=== PATIENT | male | born 1990 | race Caucasian/White ===

== ENCOUNTER 2016-05-12 13:51 | Inpatient (IN) ==
[2016-05-12] MEDS ORDERED: NS 1,000 ML IV ONE (14:30)
[2016-05-12] MEDS ORDERED: SODIUM CHLORIDE 0.9% INJ ONE (14:31)
[2016-05-12] MEDS ORDERED: REGLAN IV ONE (14:31)
[2016-05-12] MEDS ORDERED: PHENERGAN IV ONE (14:31)
[2016-05-12 14:39] LABS: MANUAL DIFF NEEDED? NO; URINE CULTURE NEEDED? NO; URINE MICRO REVIEW NEEDED? NO; URINE SOURCE CATH
[2016-05-12 14:43] LABS: BILIRUBIN URINE NEGATIVE (NEGATIVE); BLOOD URINE NEGATIVE (NEGATIVE); COLOR STRAW; GLUCOSE URINE >1000 mg/dL (NEGATIVE); LEUKOCYTES URINE NEGATIVE (NEGATIVE); NITRITE URINE NEGATIVE (NEGATIVE); PROTEIN URINE NEGATIVE (NEGATIVE); SP GRAVITY URINE 1.027; TURBIDITY URINE CLEAR (CLEAR); UR EPITHELIAL CELLS <10 /HPF (<10); URINE BACTERIA NEGATIVE /HPF; URINE RBC <10 /HPF (<10); URINE WBC <10 /HPF (<10); UROBILINOGEN URINE NORMAL (NORMAL)
[2016-05-12 14:45] LABS: BASO% 0.3 % (0.0-0.8); EOS# 0.07 X1000 (0.0-0.7); EOS% 0.8 % (0.0-10.0); HEMATOCRIT 47.5 % (42.0-52.0); HEMOGLOBIN 15.3 g/dL (14.0-18.0); LYMPH# 1.76 X1000 (1.2-3.4); LYMPH% 19.7 % (20.5-51.1); MCH 31.8 PG (27-31); MCHC 32.2 g/dL (33-37); MCV 98.8 FL (81-99); MONO# 0.58 X1000 (0.11-0.59); MONO% 6.5 % (1.7-9.3); MPV 9.5 FL (7.4-10.4); NEUT% 72.7 % (42.2-75.2); PLT 376 X1000 (130-400); RBC 4.81 XMIL (4.7-6.1)
[2016-05-12 15:05] LABS: ALLEN TEST NO; BE -3.9 mmoll (-3.0-3.0); BLOOD TYPE ARTERIAL; DRAW SITE R BRACHIAL; METHB 1.3 % (0.0-1.5); O2(CT) 19.5 mL/dL (15.0-23.0); PCO2(98.6) 40 mmHg (35-45); PO2(98.6) 100 mmHg (60-100); SAMPLE BLOOD; SAO2 100.1 % (95.0-100.0); THB 14.4 g/dL (11.5-17.4); pH(98.6) 7.34 (7.35-7.45)
[2016-05-12 15:07] LABS: MODALITY ROOM AIR
[2016-05-12 15:24] LABS: AGAP 14; ALBUMIN 3.9 g/dL (3.5-5.0); ALKALINE PHOSPHATASE 151 U/L (32-122); BUN 23 mg/dL (8-22); CALCIUM 9.1 mg/dL (8.8-10.2); CHLORIDE 84 mmol/L (98-107); COSMO 295; GOT 27 U/L (10-34); GPT 37 U/L (10-44); POTASSIUM 5.1 mmol/L (3.5-5.1); SODIUM 123 mmol/L (136-145); TCO2 25 mmol/L (25-35); TOTAL BILIRUBIN 1.09 mg/dL (0.20-1.00); TOTAL PROTEIN 7.6 g/dL (6.3-8.3)
[2016-05-12] MEDS ORDERED: HUMULIN R 100 UNIT in NS 100 ML IV SCH (15:30)
[2016-05-12] MEDS ORDERED: POTASSIUM CHLORIDE 20 MEQ in NS 100 ML IV PRN (17:39)
[2016-05-12] MEDS ORDERED: ZOFRAN PO PRN (17:39)
[2016-05-12] MEDS ORDERED: ZOFRAN IV PRN (17:39)
[2016-05-12] MEDS ORDERED: POTASSIUM CHLORIDE 40 MEQ in NS 250 ML IV PRN (17:39)
[2016-05-12] MEDS ORDERED: D50W SYRINGE IV PRN (17:39)
[2016-05-12] MEDS ORDERED: HUMULIN R IV ONE (17:39)
[2016-05-12] MEDS ORDERED: MAGNESIUM SULFATE 2 GM/S.W.I. 2 GM/50 ML IVPB IV PRN (17:39)
[2016-05-12] MEDS ORDERED: SODIUM CHLORIDE 0.9% INJ SCH (18:00)
[2016-05-12] MEDS ORDERED: PROTONIX IV SCH (18:00)
[2016-05-12] MEDS ORDERED: NICODERM PATCH TD PRN (18:00)
[2016-05-12 18:21] LABS: UR AMPHETAMINES QUAL NONE DETECTED (NONE DETECT); UR BARBITUATES QUAL NONE DETECTED (NONE DETECT); UR BENZODIAZEPIN QUAL NONE DETECTED (NONE DETECT); UR CANNABINOIDS QUAL NONE DETECTED (NONE DETECT); UR COCAINE QUAL NONE DETECTED (NONE DETECT); UR METHADONE QUAL NONE DETECTED (NONE DETECT); UR OPIATES QUAL NONE DETECTED (NONE DETECT); UR OXYCODONE QUAL NONE DETECTED (NONE DETECT); UR PCP QUAL NONE DETECTED (NONE DETECT)
--- NOTE | 2016-05-12 18:40 | HISTORY AND PHYSICAL ---
CHIEF COMPLAINT: Nausea, vomiting and weakness. HISTORY OF PRESENT ILLNESS: Mr. Cotto is a 26-year-old, male with a history of type 1 diabetes with medical noncompliance who has not taken his insulin in around a month per his report. Over the past 2 or 3 days he has had worsening nausea and vomiting without abdominal pain and overall lethargy and weakness. He denies any fever, chills, cough or congestion. No hematemesis and no dysuria. He came to the ER today for evaluation. His blood sugar was noted to be above 900 but he was not acidotic and no evidence of DKA. He denies any sick contacts. No chest pain or shortness of breath. No lower extremity edema. No orthopnea. As such, he is going to be admitted to the CICU for HH NKAS with an insulin drip. PAST MEDICAL HISTORY: 1. Type 1 diabetes. 2. Medical noncompliance. 3. Nicotine dependence. 4. Anxiety. SURGICAL HISTORY: Ear surgery and tonsillectomy. SOCIAL HISTORY: The patient reports 6-8 cigarettes a day. He denies alcohol or drug use. He is single and has 3 children. FAMILY HISTORY: Father from unknown causes. Mother alive with no medical problems. REVIEW OF SYSTEMS: Fourteen-point review of systems obtained and found to be negative with the exception of the HPI. ALLERGIES: Amoxicillin and penicillins in general. HOME MEDICATIONS: Klonopin and insulin exact dose is unknown. PHYSICAL EXAMINATION: VITAL SIGNS: Blood pressure is 131/80, heart rate 69, respiratory rate 20, O2 saturation 94% on room air. Temperature is 97.4 degrees. GENERAL: This is a well-developed, well-nourished, male, lying in hospital bed. No acute distress. NEUROLOGIC: The patient is slightly lethargic but he follows commands without focal deficits. He is also slightly confused. He said that it is 2016. HEENT: Head atraumatic and normocephalic. His pupils are equal, round, and reactive to light. Oral mucosa is dry. Trachea is midline. No JVD. CHEST: Clear to auscultation bilaterally. CV: Regular rate and rhythm. S1, S2 is noted. GI: Epigastric tenderness to palpation. Belly is soft nondistended, nontender, bowel sounds positive. EXTREMITIES: Without edema, clubbing or cyanosis. Pulses are palpable bilaterally. DIAGNOSTIC DATA: WBC 8.95, hemoglobin 15.3, hematocrit 47.5, platelet count 376,000. ABG on room air pH 7.34, CO2 40, PO2 100, lactate 1.4. Sodium 123 corrected for glucose is 136, potassium 5.1, chloride 84, CO2 25, anion gap 14, BUN 23, creatinine 0.8. Glucose 915. Calcium 9.1, bilirubin 1.09. AST 27, ALT 37, alkaline phosphatase 151. Urine is negative for acute process. ASSESSMENT AND PLAN: 1. HH NKAS: the patient is not acidotic and has very minimal ketones in the urine. We will place him on an insulin drip with aggressive hydration and electrolyte monitoring. Once his sugar has come down we will switch him to subcutaneous insulin. We will also check a chest x-ray. 2. Nausea, vomiting: Likely secondary to his hyperglycemic hyperosmotic state. We will check an abdominal ultrasound given his mildly elevated LFTs and allow clear liquids. 3. Anxiety. We will continue his Klonopin once the dosages have been verified. 4. Type 1 diabetes: Patient is noncompliant. We will continue diabetic education daily and encourage compliance on a daily basis. 5. Nicotine dependence: Patient has been highly advised to quit smoking. We will write a nicotine patch and continue cessation education. 6. DVT prophylaxis with Lovenox and we will add Protonix given his nausea vomiting. Further recommendations to follow. Dictated by BERT Monroe for Donald Funk MD cc: BERT Monroe MD
[2016-05-12] MEDS: D5 NS 1,000 ML IV SCH ×2 (19:00→20:57)
[2016-05-12] MEDS: HUMULIN R 100 UNIT in NS 99 ML IV SCH ×2 (19:05→20:31)
[2016-05-12 19:17] LABS: HEMOGLOBIN A1C 7.6 % (4.8-6.0)
--- NOTE | 2016-05-12 20:26 | Diag Imaging Result Document ---
PROCEDURE NAME: US GB < RUQ (LIMITED) - 05/12/2016 RIGHT UPPER QUADRANT ULTRASOUND: FINDINGS: The visualized portions of the aorta and inferior vena cava are within normal limits. The pancreas is obscured. The liver is slightly heterogeneous in appearance, but there are no discrete masses. There is antegrade flow in the portal vein and the common bile duct measures 2 mm. The right kidney is without evidence of hydronephrosis or mass. The gallbladder is clear. There is no sonographic Bhatia's sign. There are no abnormal fluid collections. IMPRESSION: No evidence of acute disease.
[2016-05-12] MEDS ORDERED: LANTUS SUBQ ONE (21:29)
[2016-05-12] MEDS ORDERED: HUMULIN R 100 UNIT in NS 99 ML IV SCH (21:30)
[2016-05-12] MEDS: 1/2 NS + KCL 20 MEQ 1,000 ML IV SCH (21:39)
[2016-05-12] MEDS ORDERED: KLONOPIN PO SCH (21:45)
[2016-05-12 22:26] LABS: AGAP 14; BUN 15 mg/dL (8-22); CHLORIDE 93 mmol/L (98-107); COSMO 285; POTASSIUM 4.3 mmol/L (3.5-5.1); SODIUM 137 mmol/L (136-145); TCO2 30 mmol/L (25-35)
[2016-05-13] MEDS: 1/2 NS + KCL 20 MEQ 1,000 ML IV SCH ×4 (01:51→15:52)
[2016-05-13] MEDS: HUMALOG SUBQ SCH ×6 (01:52→21:52)
[2016-05-13 07:37] LABS: HEMATOCRIT 40.4 % (42.0-52.0); HEMOGLOBIN 13.8 g/dL (14.0-18.0); MCH 31.5 PG (27-31); MCHC 34.2 g/dL (33-37); MCV 92.2 FL (81-99); MPV 9.2 FL (7.4-10.4); RBC 4.38 XMIL (4.7-6.1)
[2016-05-13 07:48] LABS: AGAP 3; BUN 17 mg/dL (8-22); CALCIUM 8.8 mg/dL (8.8-10.2); CHLORIDE 100 mmol/L (98-107); COSMO 281; HDL 34 mg/dL (35-55); LDL 107 mg/dL; POTASSIUM 4.1 mmol/L (3.5-5.1); SODIUM 140 mmol/L (136-145); TCO2 37 mmol/L (25-35); TRIGLYCERIDES 350 mg/dL (39-160); VLDL 70 mg/dL
[2016-05-13] MEDS: KLONOPIN PO PRN ×2 (10:03→21:52)
[2016-05-13] MEDS: LOVENOX SUBQ SCH (10:04)
[2016-05-13 10:57] LABS: HEPATITIS PROFILE ACUTE SEE COMMENTS
[2016-05-13] MEDS ORDERED: INSULIN PEN NEEDLES ONE (16:57)
--- NOTE | 2016-05-13 17:02 | PROGRESS NOTE ---
DATE: 05/13/2016 SUBJECTIVE: This patient states that he is feeling much better, just generalized weakness. No acute events overnight. OBJECTIVE: Vital Signs: Temperature 98.6 degrees, pulse 88, respiratory rate 16, blood pressure 119/76, oxygen saturation 100% on room air. HEENT: Head normocephalic. No trauma. PERRLA. Neck: Supple. No JVD. No masses. Central trachea. Chest: Clear to auscultation. No wheezing. No rales. Cardiovascular: RRR. No murmurs. Abdomen: Soft, mild tenderness to palpation in the epigastric area. Extremities: No edema. No clubbing. No cyanosis. Neurological examination: The patient is alert and oriented x3. No focal neurological deficits. LABORATORY: WBC 8.3, hemoglobin 13.8, hematocrit 40.4, platelet 339. Sodium 140, potassium 4.1, chloride 100, bicarbonate 37. BUN 17, creatinine 0.7, glucose 93. Calcium 8.8, triglycerides 350 and cholesterol 210. ASSESSMENT AND PLAN: 1. Hyperosmolar hyperglycemic nonketotic syndrome. This patient is not having metabolic acidosis. The blood sugar is under control. I put this patient back on his medication. He told me that for the past days he could not take his medication because he cannot afford that. I already talked to the social service liaison, and we are going to provide at least 1 month of this medication for this patient. He feels better. Probably I will send this patient home tomorrow. 2. Nausea and vomiting, resolved. 3. Anxiety. We will continue with Klonopin. 4. Type 1 diabetes. His hemoglobin A1c is 7.6; it looks like the blood sugar is under control. We will continue with the same management. 5. Nicotine dependence. This patient has been highly advised against smoking cigarettes. I will continue with daily cessation education. 6. Dyslipidemia, for both high triglycerides and high cholesterol. I will put this patient on Lipitor. 7. Deep vein thrombosis prophylaxis. Continue with Lovenox. cc: Donald Funk MD
[2016-05-13] MEDS ORDERED: LIPITOR PO SCH (21:00)
[2016-05-13] MEDS ORDERED: HUMULIN 70/30 SUBQ SCH (21:00)
[2016-05-13] MEDS ORDERED: LANTUS SUBQ SCH (21:00)
[2016-05-14] MEDS: 1/2 NS + KCL 20 MEQ 1,000 ML IV SCH ×5 (00:25→09:43)
[2016-05-14] MEDS: HUMALOG SUBQ SCH ×3 (02:28→09:46)
[2016-05-14 05:06] VITALS: BP 138/74
[2016-05-14 07:53] LABS: HEMATOCRIT 40.2 % (42.0-52.0); HEMOGLOBIN 13.5 g/dL (14.0-18.0); MCH 31.5 PG (27-31); MCHC 33.6 g/dL (33-37); MCV 93.9 FL (81-99); MPV 9.7 FL (7.4-10.4); RBC 4.28 XMIL (4.7-6.1)
[2016-05-14 07:57] LABS: AGAP 11; BUN 21 mg/dL (8-22); CALCIUM 8.8 mg/dL (8.8-10.2); CHLORIDE 99 mmol/L (98-107); COSMO 278; POTASSIUM 4.4 mmol/L (3.5-5.1); SODIUM 137 mmol/L (136-145); TCO2 27 mmol/L (25-35)
[2016-05-14] MEDS ORDERED: HUMULIN 70/30 SUBQ SCH (09:00)
[2016-05-14] MEDS: LOVENOX SUBQ SCH ×2 (09:45→09:53)
[2016-05-14] MEDS: KLONOPIN PO PRN (09:45)
--- NOTE | 2016-05-14 18:03 | DISCHARGE SUMMARY ---
ADMISSION DATE: 05/12/2016 DISCHARGE DATE: 05/14/2016 DISCHARGE DIAGNOSES: 1. Hyperosmolar hyperglycemic nonketotic syndrome, resolved. 2. Type 1 diabetes. 3. Anxiety. 4. Nausea and vomiting. 5. Dyslipidemia. 6. Nicotine dependence. HOSPITAL COURSE: A 26-year-old male with a past medical history of type 1 diabetes with medical noncompliance who was admitted 2 days ago, on 05/12/2016. As per the patient, he has not been taking his insulin in around a month, apparently he has been having money problems. For the for the past 2-3 days previous to the admission he has had worsening nausea and vomiting without abdominal pain or changes in the mental status, no fever, no chills, no cough, or any kind of congestion. He presented to the emergency department for evaluation. His blood sugar was noted to be above 900 but he was not acidotic and no evidence of DKA. He was hospitalized and the blood sugar was controlled, this patient was improving on a daily basis. Because he cannot afford his medications the social worker school found treatment for his insulin for at least 1 month. He told me that now his condition is different and from now on he is going to be able to buy his medication. Surprisingly his hemoglobin A1c is 7.5, as per the patient, he has been using insulin 70/30, 70 units in the morning and 30 units in the afternoon, and the blood sugar has been under control. So I will discharge this patient with a followup by his primary care physician. DISCHARGE PHYSICAL EXAMINATION: Vital Signs: Temperature 98.1 degrees, pulse 70, respiratory rate 18, blood pressure 138/74, oxygen saturation 100% on room air. HEENT: Head normocephalic. No trauma. PERRLA. Neck: Supple. No JVD. No masses. Central trachea. Chest: Clear to auscultation. No wheezing. No rales. Cardiovascular: RRR. No murmurs. Abdomen: Soft, nontender, nondistended. No hepatosplenomegaly. Extremities: No edema. No clubbing. No cyanosis. Neurological: The patient is alert and oriented x3. No focal neurological deficits. LABORATORY: WBC 6.7, hemoglobin 13.5, hematocrit 40.2, platelet 289,000. Sodium 137, potassium 4.4, chloride 99, bicarbonate 27, BUN 21, creatinine 0.7, glucose 113, calcium 8.8, magnesium 1.7. DISCHARGE MEDICATIONS: Lipitor 40 mg p.o. at bedtime. Clonazepam 1 mg p.o. b.i.d. p.r.n. anxiety. Insulin 70/30 Humulin 70 units subcutaneously q.a.m. and 30 units q.p.m. FOLLOWUP: Followup by his primary care physician in 1 week. cc: Donald Funk MD
--- NOTE | 2016-05-20 13:46 | PROVIDER DOCUMENTATION ---
This chart was entered by Paula Padilla Scribe, acting as scribe for Katia Arcos MD. HPI-General Adult - General Chief Complaint: High Blood Sugar Stated Complaint: WEAKNESS,VOMITING,DEHYDRATION Time Seen by Provider: 05/12/16 14:22 Source: patient Allergies/Adverse Reactions: Patient Allergies Allergy/AdvReac Type Severity Reaction Status Date / Time amoxicillin [Amoxicillin] Allergy Mild RASH Verified 05/12/16 15:19 Penicillins Allergy Mild RASH Verified 05/12/16 15:19 Home Medications: Home Medication List Medication Instructions Recorded Confirmed Last Taken Type Clonazepam [Klonopin] 1 mg PO DIRECTED #53 tablet 08/18/15 05/12/16 05/10/16 08:00 Rx Clonazepam [Klonopin] 1 mg PO BID PRN PRN #25 tablet 05/14/16 Unknown Rx Insulin Humulin 70/30 [Humulin 30 unit SUBQ QPM #2 insuln.pen 05/14/16 Unknown Rx 70/30] Insulin Humulin 70/30 [Humulin 70 unit SUBQ QAM #2 insuln.pen 05/14/16 Unknown Rx 70/30] - History of Present Illness -Gen Adult Nature of Presenting Problems: 26 y/o M presents to ED cc of N/V/fatigue x 2 days. Pt is a known diabetic and states he has been out of insulin x 1 month now. Pt states he is just not feeling well. Pt reports being sweaty. Pt is alert. Location of Pain/Injury: reports: generalized Pain Radiation: reports: no radiation Quality of Pain: reports: aching Severity: reports: mild Onset/Duration: reports: 2 days ago Timing: reports: still present Context/Activities at Onset: reports: light activity Associated Symptoms: reports: diaphoresis, fatigue, nausea, vomiting, other ( high blood sugar). denies: chest pain, fever/chills, sinus congestion/drainage , shortness of breath Similar Symptoms Previously?: No Recently seen or treated by another doctor?: No - Diabetes Related Context Context: reports: high blood sugar Review of Systems - Adult - REVIEW OF SYSTEMS - ADULT Constitutional: reports: fatique. denies: chills, fever, night sweats Ears, Nose, Mouth & Throat: denies: ear pain, throat pain Cardiovascular: denies: chest pain, palpitations Respiratory: denies: cough, shortness of breath Gastrointestinal: reports: nausea, vomiting. denies: abdominal pain, diarrhea, frequent heartburn, rectal bleeding Genitourinary: denies: dysuria, discharge Musculoskeletal: denies: bone pain, back pain Neurological: denies: dizziness/vertigo, headache/migraines Past History - Adult - PAST MEDICAL HISTORY-ADULT Review of Records: reports: Old Records Reviewed, Nursing Assessment Review Major Childhood Illnesses: reports: denies history Cardiovascular: reports: denies history Respiratory: reports: asthma Gastrointestinal: reports: denies history Obstetrical/Gynecological: reports: denies history Genitourinary: reports: denies history Musculoskeletal: reports: denies history Neurological: reports: denies history Endocrine/Immune: reports: Diabetes Other Conditions: reports: denies history - PRIOR SURGERIES/PROCEDURES Surgical/Procedure History: reports: tonsillectomy, other (ear) - IMMUNIZATION STATUS Childhood Immunizations: See Nurse Assessment Flu Vaccine: See Nurse Assessment - FAMILY HISTORY Family History: reviewed, not pertinent - SOCIAL HISTORY Smoking: greater than 1 pack/day Provider spent 3-5 mins advising pt. on dangers of tobacco.: Discussed manners to quit use, and f/u contacts for add'l counseling. Substance Use: denies Alcohol Use Frequency: never Physical Exam-General - PHYSICAL EXAM-ADULT Initial Vital Signs Reviewed: Yes - CONSTITUTIONAL General Appearance: alert, no apparent distress, lethargic - EYES Eyes: pink conjunctivae - HEAD, EARS, NOSE, MOUTH & THROAT HENMT: moist mucous membranes, normal ENT inspection - RESPIRATORY Respiratory: lungs clear, normal breath sounds - CARDIOVASCULAR Cardiovascular: normal peripheral pulses, regular rate, rhythm, no edema - GASTROINTESTINAL (ABDOMEN) Abdominal Exam: normal bowel sounds, non tender, soft - LYMPHATIC Lymphatic: no adenopathy - MUSCULOSKELETAL Back Exam: normal inspection, no CVA tenderness, no vertebral tenderness Extremity: non-tender, normal gait - SKIN Integumentary: normal color, normal turgor, warm/dry - NEUROLOGIC Neurologic: grossly normal, no motor/sensory deficits - PSYCHIATRIC Psych/Mental Status: oriented x 3 Progress - PLAN OF CARE/RESULTS Progress/Plan/Lab Results: Vital Signs - 8 hr 05/12/16 14:03 Temperature 97.4 F L Pulse Rate 74 Respiratory Rate 18 Blood Pressure 150/80 O2 Sat by Pulse Oximetry 100 Laboratory Results - last 24 hr 05/12/16 05/12/16 05/12/16 14:24 14:24 14:24 WBC 8.95 RBC 4.81 Hgb 15.3 Hct 47.5 MCV 98.8 MCH 31.8 H MCHC 32.2 L RDW Std Deviation 13.4 Plt Count 376 MPV 9.5 Neut % (Auto) 72.7 Lymph % (Auto) 19.7 L [place] % (Auto) 6.5 Eos % (Auto) 0.8 Baso % (Auto) 0.3 Neut # (Auto) 6.51 H Lymph # (Auto) 1.76 [place] # (Auto) 0.58 Eos # (Auto) 0.07 Baso # (Auto) 0.03 Specimen Type Sample Site pH pCO2 pO2 HCO3 Base Excess Oxyhemoglobin ABG O2 Sat (Calculated) ABG O2 Saturation ABG Carboxyhemoglobin ABG Methemoglobin Brendan Test A-a O2 Difference Total Hemoglobin Lactate Blood Gas Modality FiO2 % Sodium 123 L Potassium 5.1 Chloride 84 L Carbon Dioxide 25 Anion Gap 14 BUN 23 H Creatinine 0.8 Estimated GFR/1.73 m2 > 60 BUN/Creatinine Ratio 29 Glucose 915 H* Calculated Osmolality 295 Calcium 9.1 Total Bilirubin 1.09 H AST 27 ALT 37 Alkaline Phosphatase 151 H Total Protein 7.6 Albumin 3.9 Globulin 3.7 Albumin/Globulin Ratio 1.1 Urine Color STRAW Urine Turbidity CLEAR Urine pH 5.0 Ur Specific [place] 1.027 Urine Protein NEGATIVE Ur Glucose (Stick) >1000 A Ur Ketones (Stick) 10 A Urine Blood NEGATIVE Urine Nitrite NEGATIVE Urine Bilirubin NEGATIVE Urobilinogen Dipstick NORMAL Urine Leukocytes NEGATIVE Urine WBC (Auto) <10 Urine RBC (Auto) <10 U Epithel Cells (Auto) <10 Urine Bacteria (Auto) NEGATIVE 05/12/16 15:00 WBC RBC Hgb Hct MCV MCH MCHC RDW Std Deviation Plt Count MPV Neut % (Auto) Lymph % (Auto) [place] % (Auto) Eos % (Auto) Baso % (Auto) Neut # (Auto) Lymph # (Auto) [place] # (Auto) Eos # (Auto) Baso # (Auto) Specimen Type ARTERIAL Sample Site R BRACHIAL pH 7.34 L pCO2 40 pO2 100 HCO3 21.8 Base Excess -3.9 L Oxyhemoglobin 96.1 ABG O2 Sat (Calculated) 19.5 ABG O2 Saturation 100.1 H ABG Carboxyhemoglobin 2.60 H ABG Methemoglobin 1.3 Brendan Test NO A-a O2 Difference 0.0 Total Hemoglobin 14.4 Lactate 1.40 Blood Gas Modality ROOM AIR FiO2 % 21.0 Sodium Potassium Chloride Carbon Dioxide Anion Gap BUN Creatinine Estimated GFR/1.73 m2 BUN/Creatinine Ratio Glucose Calculated Osmolality Calcium Total Bilirubin AST ALT Alkaline Phosphatase Total Protein Albumin Globulin Albumin/Globulin Ratio Urine Color Urine Turbidity Urine pH Ur Specific [place] Urine Protein Ur Glucose (Stick) Ur Ketones (Stick) Urine Blood Urine Nitrite Urine Bilirubin Urobilinogen Dipstick Urine Leukocytes Urine WBC (Auto) Urine RBC (Auto) U Epithel Cells (Auto) Urine Bacteria (Auto) Orders Category Date Time Status ABG [RESP] Routine Lab 05/12/16 15:00 Completed CBC WITH ELECTRONIC DIFF [HEME] Stat Lab 05/12/16 14:24 Completed CMP [COMPREHENSIVE METABOLIC PANEL] [CHEM] Stat Lab 05/12/16 14:24 Completed URINALYSIS W/POSS RFLX CULT [URINALYSIS] Stat Lab 05/12/16 14:24 Completed 0.9% Sodium Chloride Inj [Ns] 1,000 ml Med 05/12/16 14:30 Discontinued IV 999 mls/hr 0.9% Sodium Chloride Inj [Ns] 100 ml Med 05/12/16 15:30 Active Insulin Human Regular [Humulin R] 100 unit IV 8 mls/hr Metoclopramide [Reglan] Med 05/12/16 14:31 Discontinued 10 mg IV NOW ONE Promethazine [Phenergan] Med 05/12/16 14:31 Discontinued 25 mg IV NOW ONE Sodium Chloride 0.9% Med 05/12/16 14:31 Discontinued 10 ml INJ NOW ONE PLAN: LABS , TREAT NAUSEA, FLUIDS, TREAT BLOOD SUGAR, MONITOR PT PT WILL BE ADMITTED Result Diagrams: 05/14/16 07:02 05/14/16 07:02 - CONSULTS/PCP/HOSPITALIST Notification #1 *Consult/PCP/Hospitalist*: (hospitialist) Time Discussed: 15:41 Consult Disposition: Admit Departure - Departure Time of Disposition Decision: 15:50 DIAGNOSIS: Hyperglycemia, Diabetes Disposition: ADMITTED INPATIENT 09 Certified Medical Emergency: Emergent Condition: Stable This chart was documented by the indicated scribe, (Paula Padilla Scribe) and accurately reflects the services I performed and decisions made by me, Katia Arcos MD, as attested by the provider's signature.
== END 2016-05-14 13:58 | disposition home or self-care (01) ==
LOC: ED 13:51 → EDIPHOLD 17:02 → 3S 21:05 → EDIPHOLD 21:23 → 3N 05-13 00:38
PROVIDERS: ATTEND Internal Medicine

== ENCOUNTER 2016-07-20 18:02 | Inpatient (IN) ==
[2016-07-20] MEDS ORDERED: NS 1,000 ML IV ONE ×2 (18:33→19:22)
[2016-07-20] MEDS ORDERED: ZOFRAN IV ONE (18:35)
[2016-07-20 18:52] LABS: BLOOD TYPE ARTERIAL; DRAW SITE R RADIAL; METHB 1.4 % (0.0-1.5); PO2(98.6) 105 mmHg (60-100); SAMPLE BLOOD; SAO2 98.8 % (95.0-100.0); THB 16.3 g/dL (11.5-17.4)
[2016-07-20 19:02] LABS: MANUAL DIFF NEEDED? NO
[2016-07-20 19:03] LABS: BASO% 0.5 % (0.0-0.8); EOS# 0.02 X1000 (0.0-0.7); EOS% 0.2 % (0.0-10.0); HEMATOCRIT 46.5 % (42.0-52.0); HEMOGLOBIN 15.5 g/dL (14.0-18.0); IMM GRAN# 0.03 X1000 (0.0-0.04); IMM GRAN% 0.2 % (0.0-0.5); LYMPH# 2.85 X1000 (1.2-3.4); LYMPH% 21.8 % (20.5-51.1); MCH 31.4 PG (27-31); MCHC 33.3 g/dL (33-37); MCV 94.1 FL (81-99); MONO# 0.94 X1000 (0.11-0.59); MONO% 7.2 % (1.7-9.3); MPV 9.3 FL (7.4-10.4); NEUT% 70.1 % (42.2-75.2); PLT 418 X1000 (130-400); RBC 4.94 XMIL (4.7-6.1)
[2016-07-20] MEDS ORDERED: NS 2,000 ML ONE (19:03)
[2016-07-20] MEDS ORDERED: HUMULIN R (PARKWAY) ONE (19:03)
[2016-07-20 19:16] LABS: ALLEN TEST YES; MODALITY ROOM AIR
[2016-07-20 19:17] LABS: pH(98.6) 7.19 (7.35-7.45)
[2016-07-20 19:18] LABS: PCO2(98.6) 22 mmHg (35-45)
[2016-07-20 19:19] LABS: BE -17.7 mmoll (-3.0-3.0)
[2016-07-20] MEDS ORDERED: HUMULIN R (PARKWAY) IV ONE (19:23)
[2016-07-20 19:27] LABS: URINE CULTURE PL NEEDED? NO
--- NOTE | 2016-07-20 19:33 | PROVIDER DOCUMENTATION ---
This chart was entered by Hailey Dixon Scribe, acting as scribe for Tor Elliott MD. HPI-Abdominal Pain/GI Problem - General Chief Complaint: Vomiting Stated Complaint: NAUSEA/VOMITING Time Seen by Provider: 07/20/16 18:30 Source: patient Allergies/Adverse Reactions: Patient Allergies Allergy/AdvReac Type Severity Reaction Status Date / Time amoxicillin [Amoxicillin] Allergy Mild RASH Verified 05/12/16 15:19 Penicillins Allergy Mild RASH Verified 05/12/16 15:19 Home Medications: Home Medication List Medication Instructions Recorded Confirmed Last Taken Type Clonazepam [Klonopin] 1 mg PO DIRECTED #53 tablet 08/18/15 05/12/16 05/10/16 08:00 Rx Clonazepam [Klonopin] 1 mg PO BID PRN PRN #25 tablet 05/14/16 Unknown Rx Insulin Humulin 70/30 [Humulin 30 unit SUBQ QPM #2 insuln.pen 05/14/16 Unknown Rx 70/30] Insulin Humulin 70/30 [Humulin 100 unit SUBQ QAM 07/20/16 07/20/16 Unknown History 70/30] - History of Present Illness-ABD Nature of Presenting Problems: 26 year old M presents to the ED with a cc of nausea and vomiting with an onset of yesterday. PT denies diarrhea. PT states that he has not had his Klonopin in a few days. Pt is a type 1 diabetic. Abdominal Pain Onset Location: reports: generalized abdomen Pain Radiation: reports: no radiation Quality of Pain: reports: none Severity in ED: reports: mild Onset/Duration: reports: 24 hours ago Timing: reports: still present Associated Symptoms: reports: nausea, vomiting Bruising or Bleeding Gums?: No Similar Symptoms Previously?: Yes Recently seen or treated by another doctor?: No Review of Systems - Adult - REVIEW OF SYSTEMS - ADULT Constitutional: denies: chills, fever Eyes: reports: no symptoms reported Ears, Nose, Mouth & Throat: reports: no symptoms reported Cardiovascular: reports: no symptoms reported Respiratory: reports: no symptoms reported Gastrointestinal: reports: nausea, vomiting Genitourinary: denies: dysuria, hematuria Musculoskeletal: reports: no symptoms reported Integumentary: reports: no symptoms reported Neurological: reports: no symptoms reported Psychiatric: reports: no symptoms reported Endocrine: reports: no symptoms reported Hematologic/Lymphatic: reports: no symptoms reported Allergic/Immunologic: reports: no symptoms reported All Other Systems: Reviewed and Negative Past History - Adult - PAST MEDICAL HISTORY-ADULT Review of Records: reports: Nursing Assessment Review, Medications Reviewed Major Childhood Illnesses: reports: denies history Cardiovascular: reports: denies history Respiratory: reports: asthma Gastrointestinal: reports: denies history Obstetrical/Gynecological: reports: denies history Genitourinary: reports: denies history Musculoskeletal: reports: denies history Neurological: reports: denies history Endocrine/Immune: reports: Diabetes Other Conditions: reports: denies history - PRIOR SURGERIES/PROCEDURES Surgical/Procedure History: reports: tonsillectomy, other (ear) - IMMUNIZATION STATUS Childhood Immunizations: See Nurse Assessment Flu Vaccine: See Nurse Assessment - FAMILY HISTORY Family History: reviewed, not pertinent Physical Exam-General - CONSTITUTIONAL General Appearance: alert - RESPIRATORY Respiratory: chest non-tender, lungs clear, normal breath sounds - CARDIOVASCULAR Cardiovascular: normal peripheral pulses, regular rate, rhythm, no edema - GASTROINTESTINAL (ABDOMEN) Abdominal Exam: soft, tenderness (generalized) - SKIN Integumentary: normal color, normal turgor, warm/dry - PSYCHIATRIC Psych/Mental Status: normal mood/affect, normal thought content, normal thought process, oriented x 3 Progress - PLAN OF CARE/RESULTS Progress/Plan/Lab Results: Vital Signs - 8 hr 07/20/16 18:09 Temperature 97 F L Pulse Rate 117 H Respiratory Rate 22 Blood Pressure 140/83 O2 Sat by Pulse Oximetry 100 Result Diagrams: 07/20/16 18:52 07/20/16 18:52 - EKG 1 Time of EKG reading by physician:: 18:45 EKG Read and Signed by:: Tor Elliott EKG Interpretation (*Must complete 3 of following elements*): Abnormal Rate: 111 Rhythm: sinus tachycardia [place]: normal Comments: right atrial enlargement Departure - Departure Date of Disposition Decision: 07/20/16 Time of Disposition Decision: 19:32 DIAGNOSIS: DKA (diabetic ketoacidoses) Qualifiers: Diabetes mellitus type: type 1 Diabetes mellitus complication detail: without coma Qualified Code(s): E10.10 - Type 1 diabetes mellitus with ketoacidosis without coma Disposition: ADMITTED INPATIENT 09 Certified Medical Emergency: Emergent Condition: Stable Referrals and Follow-Ups: Eleno,Chitra A., CRITICAL CARE PHYSICIAN ASSISTANT [Primary Care Provider] - - Critical Care Note This patient required my direct & personal management of CC.: No This chart was documented by the indicated scribe, (Hailey Dixon Scribe) and accurately reflects the services I performed and decisions made by me, Tor Elliott MD, as attested by the provider's signature.
--- NOTE | 2016-07-20 19:37 | EKG Report ---
Test Performed on : 07/20/2016 6:45:08 PM Test Reason : pain Blood Pressure : / mmHG Vent. Rate : 111 BPM Atrial Rate : 111 BPM P-R Int : 140 ms QRS Dur : 082 ms QT Int : 332 ms P-R-T Axes : 073 078 064 degrees QTc Int : 451 ms Sinus tachycardia. Right atrial enlargement Borderline ECG When compared with ECG of 15-AUG-2015 18:40, Vent. rate has increased BY 45 BPM T wave amplitude has increased in Anterior leads Unconfirmed Result
[2016-07-20 19:38] LABS: AGAP 38; ALBUMIN 4.6 g/dL (3.5-5.0); ALKALINE PHOSPHATASE 97 U/L (32-122); BUN 17 mg/dL (8-22); CHLORIDE 81 mmol/L (98-107); COSMO 287; GOT 23 U/L (10-34); GPT 31 U/L (10-44); POTASSIUM 5.3 mmol/L (3.5-5.1); SODIUM 127 mmol/L (136-145); TCO2 8 mmol/L (25-35)
[2016-07-20 19:45] LABS: UR AMPHETAMINES QUAL NONE DETECTED (NONE DETECT); UR BARBITUATES QUAL NONE DETECTED (NONE DETECT); UR BENZODIAZEPIN QUAL NONE DETECTED (NONE DETECT); UR CANNABINOIDS QUAL NONE DETECTED (NONE DETECT); UR COCAINE QUAL NONE DETECTED (NONE DETECT); UR MDMA QUAL NONE DETECTED (NONE DETECT); UR METHADONE QUAL NONE DETECTED (NONE DETECT); UR METHAMPHETAMINE QUAL NONE DETECTED (NONE DETECT); UR OPIATES QUAL NONE DETECTED (NONE DETECT); UR OXYCODONE QUAL NONE DETECTED (NONE DETECT); UR PCP QUAL NONE DETECTED (NONE DETECT); UR TCA QUAL NONE DETECTED (NONE DETECT)
[2016-07-20 19:46] LABS: BILIRUBIN URINE NEGATIVE (NEGATIVE); BLOOD URINE NEGATIVE (NEGATIVE); CLARITY CLEAR (CLEAR); COLOR YELLOW; LEUKOCYTES URINE NEGATIVE (NEGATIVE); NITRITE URINE NEGATIVE (NEGATIVE); PROTEIN URINE NEGATIVE (NEGATIVE); UROBILINOGEN URINE NORMAL
[2016-07-20 19:47] LABS: URINE CAST NONE SEEN /LPF; URINE CRYSTAL NONE SEEN /HPF; URINE EPITHELIAL CELLS <10 /HPF (<10); URINE RBC <10 /HPF (<10); URINE SOURCE CLEAN CATCH; URINE WBC <10 /HPF (<10)
[2016-07-20] MEDS ORDERED: TYLENOL PR PRN (21:20)
[2016-07-20] MEDS ORDERED: HUMULIN R 100 UNIT in NS 99 ML IV SCH (21:20)
[2016-07-20] MEDS ORDERED: SODIUM PHOSPHATE 30 MMOL in D5W 250 ML IV PRN (21:20)
[2016-07-20] MEDS ORDERED: D5 NS 1,000 ML IV SCH (21:20)
[2016-07-20] MEDS ORDERED: SODIUM BICARBONATE 8.4% 50 MEQ in D5W 250 ML IV PRN (21:20)
[2016-07-20] MEDS ORDERED: NS 1,000 ML IV SCH (21:20)
[2016-07-20] MEDS ORDERED: HUMULIN R IV ONE (21:20)
[2016-07-20] MEDS ORDERED: TYLENOL PO PRN (21:20)
[2016-07-20] MEDS ORDERED: MAGNESIUM SULFATE 2 GM/S.W.I. 2 GM/50 ML IVPB IV PRN (21:20)
[2016-07-20] MEDS ORDERED: D50W SYRINGE IV PRN (21:20)
[2016-07-20] MEDS ORDERED: ZOFRAN IV PRN (21:23)
[2016-07-20] MEDS: NS 1,000 ML IV SCH (22:00)
[2016-07-20 23:07] LABS: HEMOGLOBIN A1C 9.6 % (4.8-6.0)
[2016-07-20 23:29] LABS: AGAP 33; AMYLASE 19 U/L (20-200); BUN 16 mg/dL (8-22); CALCIUM 8.4 mg/dL (8.8-10.2); CHLORIDE 91 mmol/L (98-107); COSMO 289; LIPASE 14 U/L (13-60); MAGNESIUM 1.9 mg/dL (1.5-2.7); POTASSIUM 4.5 mmol/L (3.5-5.1); SODIUM 134 mmol/L (136-145); TCO2 11 mmol/L (25-35)
[2016-07-21 04:12] LABS: AGAP 13; BUN 13 mg/dL (8-22); CALCIUM 8.2 mg/dL (8.8-10.2); CHLORIDE 101 mmol/L (98-107); COSMO 275; MAGNESIUM 1.9 mg/dL (1.5-2.7); POTASSIUM 4.1 mmol/L (3.5-5.1); SODIUM 134 mmol/L (136-145); TCO2 20 mmol/L (25-35)
[2016-07-21] MEDS: NS 1,000 ML IV SCH ×2 (06:06→08:01)
[2016-07-21 06:25] LABS: BE -2.4 mmoll (-3.0-3.0); BLOOD TYPE ARTERIAL; DRAW SITE R RADIAL; METHB 1.3 % (0.0-1.5); O2(CT) 18.6 mL/dL (15.0-23.0); PCO2(98.6) 42 mmHg (35-45); PO2(98.6) 97 mmHg (60-100); SAMPLE BLOOD; SAO2 99.4 % (95.0-100.0); THB 13.7 g/dL (11.5-17.4); pH(98.6) 7.35 (7.35-7.45)
[2016-07-21 06:28] LABS: ALLEN TEST YES; MODALITY ROOM AIR
[2016-07-21 07:28] LABS: AGAP 12; BUN 12 mg/dL (8-22); CALCIUM 8.3 mg/dL (8.8-10.2); CHLORIDE 101 mmol/L (98-107); COSMO 277; MAGNESIUM 1.7 mg/dL (1.5-2.7); POTASSIUM 3.9 mmol/L (3.5-5.1); SODIUM 135 mmol/L (136-145); TCO2 21 mmol/L (25-35)
[2016-07-21] MEDS: HUMULIN 70/30 (PARKWAY) SUBQ SCH ×2 (08:58→17:07)
[2016-07-21] MEDS: KLONOPIN PO PRN ×2 (08:59→22:18)
[2016-07-21] MEDS: HUMALOG DOSE (PARKWAY) SUBQ SCH ×3 (11:27→22:18)
--- NOTE | 2016-07-21 17:37 | HISTORY AND PHYSICAL ---
CHIEF COMPLAINT: Abdominal pain and vomiting. HISTORY OF PRESENT ILLNESS: This is a 26-year-old gentleman who presented to the emergency room complaining of abdominal pain and vomiting. He states that he was in [facility] and he did not get his insulin during that time and he does have a history of insulin-dependent diabetes. He was found to have a blood sugar of 458 on admission as well as a pH of 7.1 and he was given IV hydration as well as 10 units of insulin IV, started on an insulin drip and admitted to ICU for further evaluation and treatment. PAST MEDICAL HISTORY: Insulin-dependent diabetes. Anxiety. PAST SURGICAL HISTORY: Tonsillectomy. SOCIAL HISTORY: He smokes 3 packs cigarettes a day. He denies alcohol or illicit drug use. ALLERGIES: Amoxicillin and penicillins which cause a rash. HOME MEDICATIONS: Humulin 70-30 100 units every morning. Klonopin 2 mg p.o. b.i.d. REVIEW OF SYSTEMS: A 14 point review of systems is discussed with patient with pertinent positives being stated in the HPI. He denies chest pain, palpitations, dizziness, syncope, fever, chills, PND, orthopnea, vomiting, diarrhea, constipation, hematuria, dysuria, frequency, urgency. PHYSICAL EXAMINATION: GENERAL: This is a 26-year-old male who is lying in the bed, drowsy, but oriented. HEENT: Head is normocephalic, atraumatic. Pupils equal, round, react to light. EOMs are intact. Sclerae anicteric. Mucous membranes are moist. NECK: Supple with trachea midline. CARDIOVASCULAR: Regular rate and rhythm. No rubs, murmurs, or gallops. S1, S2 appreciated. PULMONARY: Breath sounds are clear with no increased work of breathing noted. Chest does rise and fall symmetrically with respiration. GASTROINTESTINAL: Abdomen is soft, nontender, nondistended. Bowel sounds in all 4 quadrants. BACK: No CVAT. No spine tenderness. : Deferred. NEUROLOGIC: He is drowsy, but he does waken and he is oriented x4 with cranial nerves 2-12 grossly intact. MUSCULOSKELETAL: Good range of motion of joints. EXTREMITIES: No clubbing, cyanosis, or edema. Calves are nontender. Pulses are palpable x4. SKIN: Warm and dry. DIAGNOSTICS: WBC is 13 with hemoglobin 15.5, hematocrit 46.5, and platelets of 418,000. Sodium is 134, potassium 4.5, BUN 16, creatinine 1, with a glucose of 458. Urinalysis is essentially negative. Urine drug screen is negative. Arterial blood gases: PH is 7.1 with a pCO2 of 22, PO2 of 105, bicarb of 11. This is on room air. His anion gap is 33 with a CO2 of 11. ASSESSMENT: 1. Diabetic ketoacidosis. 2. Leukocytosis, which is probably reactive. 3. Hyperbilirubinemia. PLAN: He will be admitted to intensive care unit, placed on telemetry. We will continue with intravenous hydration and medications per diabetic ketoacidosis protocol. He is on Klonopin 2 mg b.i.d. We will order 1 p.o. b.i.d. p.r.n. anxiety. Further treatments pending hospital course. Dictated by BERT Sabillon for Leopoldo Pinto MD cc: BERT Sabillon MD
--- NOTE | 2016-07-21 17:49 | PROGRESS NOTE ---
DATE: 07/21/2016 SUBJECTIVE: The patient states that he feels better today. He has had no vomiting. He states nausea is much improved. OBJECTIVE: Vital Signs: Blood pressure is 122/64 with a heart rate of 87, respirations are 18, temperature is 97.4 degrees oral with room air sats 100. Cardiovascular: Regular rate and rhythm. S1, S2 appreciated. Pulmonary: Breath sounds are clear. No increased work of breathing noted. Gastrointestinal: Abdomen is soft, nontender, nondistended with bowel sounds in all 4 quadrants. LABS: ABGs, pH is 7.35 with pCO2 42, PO2 97 and bicarb 23. Sodium is 135, potassium 3.9, CO2 21, with anion gap of 12. Creatinine 0.8. Blood sugars are now ranging in the 139 to 270 range. PROBLEM LIST: 1. DKA. Blood sugars have decreased. 2. Insulin-dependent diabetes, noncompliance with an A1c of. 9.6. 3. Anxiety. PLAN: He will move back to the floor. We will continue with his Klonopin 1 mg p.o. b.i.d. Will be placed on pattern blood glucose. Will give 70/30 30 units b.i.d. We will continue to monitor electrolytes. Dictated by BERT Sabillon for Leopoldo Pinto MD cc: BERT Sabillon MD
[2016-07-22] MEDS: HUMALOG DOSE (PARKWAY) SUBQ SCH ×3 (06:35→16:13)
[2016-07-22] MEDS: HUMULIN 70/30 (PARKWAY) SUBQ SCH (06:35)
[2016-07-22] MEDS ORDERED: HUMULIN 70/30 (PARKWAY) SUBQ SCH (07:35)
[2016-07-22] MEDS: KLONOPIN PO PRN (08:40)
[2016-07-22 16:28] VITALS: BP 126/72
--- NOTE | 2016-07-22 20:15 | DISCHARGE SUMMARY ---
ADMISSION DATE: 07/20/2016 DISCHARGE DATE: 07/22/2016 DIAGNOSES: 1. Diabetic ketoacidosis. 2. Insulin-dependent diabetes with noncompliance and an A1c of 9.6. 3. Anxiety. HOSPITAL COURSE: Mr. Ctoto presented to the hospital complaining of abdominal pain, vomiting and elevated blood sugars. He stated he has been in residential and had not gotten his insulin during that time. He was found to have a blood sugar of 458 with pH 7.1. He was admitted to ICU and he was placed on DKA protocol. Thankfully he did respond to treatment. He was transitioned back to his 40 units of 70/30 insulin with blood sugars running in the mid 200s. The patient was placed on a diabetic diet during the hospitalization and he was not happy with this. He requested food constantly from the staff, not wanting Diet Coke, wanting regular Coke, wanting sweet snacks. He did state that at home he did not watch his diet, he did not drink diet drinks, and he was not happy with our limitations, although he was continued to be served a diabetic diet. DISCHARGE PHYSICAL EXAMINATION: Cardiovascular: Regular rate and rhythm. S1 and S2 appreciated. Pulmonary: Breath sounds are clear. No increased work of breathing noted. Gastrointestinal: Abdomen soft, nontender, nondistended, with bowel sounds in all 4 quadrants. Neurologic: He is alert and oriented x3 with cranial nerves 2-12 grossly intact. DISCHARGE MEDICATIONS: 1. Klonopin 1 mg p.o. b.i.d. 2. Novolin 70/30, 40 units subcutaneous b.i.d. 3. He was given a prescription for ReliOn insulin. He was instructed he could buy this over-the- counter at [employer]. DISPOSITION: He is being discharged home in stable condition with family members. TIME SPENT: This is a greater than 30 minute discharge. Dictated by BERT Sabillon for Leopoldo Pinto MD cc: BERT Sabillon MD
== END 2016-07-22 17:46 | disposition home or self-care (01) ==
LOC: P.ED 18:02 → P.ICU 20:32 → P.MEDSURG 07-21 10:29
PROVIDERS: ATTEND Family Medicine

== ENCOUNTER 2016-09-11 20:42 | Inpatient (IN) ==
[2016-09-11] MEDS ORDERED: ZOFRAN IV ONE (20:59)
[2016-09-11] MEDS ORDERED: NS 2,400 ML IV ONE (21:00)
[2016-09-11] MEDS ORDERED: HUMULIN R (PARKWAY) IV ONE (21:11)
[2016-09-11 21:13] LABS: MANUAL DIFF NEEDED? NO
[2016-09-11 21:19] LABS: BASO% 0.6 % (0.0-0.8); EOS# 0.01 X1000 (0.0-0.7); HEMATOCRIT 48.4 % (42.0-52.0); HEMOGLOBIN 15.8 g/dL (14.0-18.0); IMM GRAN# 0.28 X1000 (0.0-0.04); IMM GRAN% 1.4 % (0.0-0.5); LYMPH# 2.29 X1000 (1.2-3.4); LYMPH% 11.1 % (20.5-51.1); MCH 31.2 PG (27-31); MCHC 32.6 g/dL (33-37); MCV 95.7 FL (81-99); MONO# 1.37 X1000 (0.11-0.59); MONO% 6.7 % (1.7-9.3); MPV 9.7 FL (7.4-10.4); NEUT% 80.2 % (42.2-75.2); PLT 414 X1000 (130-400); RBC 5.06 XMIL (4.7-6.1)
[2016-09-11 21:19] LABS: URINE CULTURE PL NEEDED? NO
[2016-09-11 21:29] LABS: BILIRUBIN URINE NEGATIVE (NEGATIVE); BLOOD URINE NEGATIVE (NEGATIVE); CLARITY CLEAR (CLEAR); COLOR YELLOW; LEUKOCYTES URINE NEGATIVE (NEGATIVE); NITRITE URINE NEGATIVE (NEGATIVE); PROTEIN URINE TRACE mg/dL (NEGATIVE); SP GRAVITY URINE 1.015; UROBILINOGEN URINE NORMAL
[2016-09-11 21:30] LABS: URINE CAST NONE SEEN /LPF; URINE CRYSTAL NONE SEEN /HPF; URINE EPITHELIAL CELLS <10 /HPF (<10); URINE SOURCE CLEAN CATCH; URINE WBC <10 /HPF (<10)
[2016-09-11 21:34] LABS: BE -23.4 mmoll (-3.0-3.0); BLOOD TYPE ARTERIAL; DRAW SITE R RADIAL; METHB 1.3 % (0.0-1.5); O2(CT) 21.5 mL/dL (15.0-23.0); PO2(98.6) 115 mmHg (60-100); SAMPLE BLOOD; SAO2 98.8 % (95.0-100.0); THB 15.9 g/dL (11.5-17.4)
[2016-09-11 21:39] LABS: MODALITY ROOM AIR; PCO2(98.6) 19 mmHg (35-45); pH(98.6) 7.05 (7.35-7.45)
--- NOTE | 2016-09-11 21:39 | PROVIDER DOCUMENTATION ---
This chart was entered by Iman Valdez Scribe, acting as scribe for Kleber Tavera MD. HPI-General Adult - General Chief Complaint: High Blood Sugar Stated Complaint: S.O.B. Time Seen by Provider: 09/11/16 20:57 Source: patient, family Allergies/Adverse Reactions: Patient Allergies Allergy/AdvReac Type Severity Reaction Status Date / Time amoxicillin [Amoxicillin] Allergy Mild RASH Verified 08/20/16 12:59 Penicillins Allergy Mild RASH Verified 08/20/16 12:59 Home Medications: Home Medication List Medication Instructions Recorded Confirmed Last Taken Type Clonazepam [Klonopin] 2 mg PO BID 07/20/16 08/29/16 08/26/16 History 2 MG Hum Insulin NPH/Reg Insulin Hm 80 unit SQ DAILY 07/29/16 08/29/16 08/26/16 History [Relion Novolin 70-30 Vial] 80 UNIT - History of Present Illness -Gen Adult Nature of Presenting Problems: 26 Y/O M presents to ER with the complain of nausea and vomit. pt mother states that pt has multiple DKA. pt mother states that pt has not taken his insulin as he has left is somewhere. pt state that he feels SOB, sore throat, nausea, vomit. Onset/Duration: reports: this morning Timing: reports: still present Similar Symptoms Previously?: Yes Recently seen or treated by another doctor?: No - Diabetes Related Context Context: reports: high blood sugar Review of Systems - Adult - REVIEW OF SYSTEMS - ADULT Constitutional: reports: no symptoms reported Eyes: reports: no symptoms reported Ears, Nose, Mouth & Throat: reports: other (sore throat). denies: throat swelling Cardiovascular: reports: no symptoms reported Respiratory: reports: shortness of breath. denies: cough, wheezing Gastrointestinal: reports: nausea, vomiting. denies: abdominal pain, diarrhea Genitourinary: reports: no symptoms reported Musculoskeletal: reports: no symptoms reported Integumentary: reports: no symptoms reported Neurological: reports: no symptoms reported Psychiatric: reports: no symptoms reported Endocrine: reports: see HPI, other (High Blood sugar) Hematologic/Lymphatic: reports: no symptoms reported Allergic/Immunologic: reports: no symptoms reported All Other Systems: Reviewed and Negative Past History - Adult - PAST MEDICAL HISTORY-ADULT Review of Records: reports: Old Records Reviewed, Nursing Assessment Review Major Childhood Illnesses: reports: denies history Cardiovascular: reports: denies history Respiratory: reports: asthma Gastrointestinal: reports: denies history Obstetrical/Gynecological: reports: denies history Genitourinary: reports: denies history Musculoskeletal: reports: denies history Neurological: reports: denies history Psychiatric: reports: anxiety Endocrine/Immune: reports: Diabetes Other Conditions: reports: denies history - PRIOR SURGERIES/PROCEDURES Surgical/Procedure History: reports: tonsillectomy, other (ear) - IMMUNIZATION STATUS Childhood Immunizations: See Nurse Assessment Flu Vaccine: See Nurse Assessment - FAMILY HISTORY Family History: reviewed, not pertinent Physical Exam-General - PHYSICAL EXAM-ADULT Initial Vital Signs Reviewed: Yes - CONSTITUTIONAL General Appearance: lethargic, slow to respond, other (dry mucous membranes, fruity odor) - EYES Eyes: PERRL/EOMI, pink conjunctivae - HEAD, EARS, NOSE, MOUTH & THROAT HENMT: normal ENT inspection, other (dry mucus membranes) - NECK Neck: non-tender, full range of motion, supple - RESPIRATORY Respiratory: chest non-tender, lungs clear, normal breath sounds - CARDIOVASCULAR Cardiovascular: normal peripheral pulses, tachycardia - GASTROINTESTINAL (ABDOMEN) Abdominal Exam: non tender, soft, other (decreased bowel sounds) - MUSCULOSKELETAL Back Exam: normal inspection, no CVA tenderness, no vertebral tenderness Extremity: normal range of motion, non-tender, normal gait - SKIN Integumentary: normal color, normal turgor, warm/dry - NEUROLOGIC Neurologic: grossly normal, no motor/sensory deficits - PSYCHIATRIC Psych/Mental Status: oriented x 3, anxious Progress - PLAN OF CARE/RESULTS Progress/Plan/Lab Results: Vital Signs - 8 hr 09/11/16 20:46 Temperature 98.5 F Pulse Rate 122 H Respiratory Rate 18 Blood Pressure 142/83 O2 Sat by Pulse Oximetry 100 Orders Category Date Time Status FSBS/Accucheck Result NOW Care 09/11/16 20:59 Active Result Diagrams: 09/11/16 21:07 09/11/16 21:07 - XRAY 1 XRAY Study: Abdomen Impression: Normal XRAY Interpretation: constipation by radiologist - CONSULTS/PCP/HOSPITALIST Notification #1 *Consult/PCP/Hospitalist*: Dr. Meredith Time Discussed: 22:23 Reason/Comments: discussed about pt Consult Disposition: Admit Departure - Departure Date of Disposition Decision: 09/11/16 Time of Disposition Decision: 22:46 DIAGNOSIS: Methamphetamine abuse DKA (diabetic ketoacidoses) Qualifiers: Diabetes mellitus type: other specified (including [id number]) Diabetes mellitus complication detail: without coma Qualified Code(s): E13.10 - Other specified diabetes mellitus with ketoacidosis without coma Leukocytosis Qualifiers: Leukocytosis type: unspecified Qualified Code(s): D72.829 - Elevated white blood cell count, unspecified Disposition: ADMITTED INPATIENT 09 Certified Medical Emergency: Emergent Condition: Stable Referrals and Follow-Ups: None,PCP [Primary Care Provider] - - Critical Care Note This patient required my direct & personal management of CC.: Yes Total Time (mins): 105 Critical Care Statement: This patient required my direct personal management to treat or rule out processes, the absence of which, could potentiallly result in sudden, clinically significant life or limb threatening deterioration. Attestation - Physician/ CHRISTINA Attestation Patient care was provided by Advanced Practice Provider:: No The physician spent face to face time with patient:: Yes Advanced Practice Provider documentation review:: Supervising physician onsite and consulted in the evaluation and care of this patient. The physician did have a face to face encounter with the patient. This chart was documented by the indicated scribe, (Iman Valdez Scribe) and accurately reflects the services I performed and decisions made by me, Kleber Tavera MD, as attested by the provider's signature.
[2016-09-11 21:40] LABS: ALLEN TEST YES
[2016-09-11 21:45] LABS: UR AMPHETAMINES QUAL NONE DETECTED (NONE DETECT); UR BARBITUATES QUAL NONE DETECTED (NONE DETECT); UR BENZODIAZEPIN QUAL NONE DETECTED (NONE DETECT); UR CANNABINOIDS QUAL NONE DETECTED (NONE DETECT); UR COCAINE QUAL NONE DETECTED (NONE DETECT); UR MDMA QUAL NONE DETECTED (NONE DETECT); UR METHADONE QUAL NONE DETECTED (NONE DETECT); UR METHAMPHETAMINE QUAL PRESUMPTIVE POSITIVE (NONE DETECT); UR OPIATES QUAL NONE DETECTED (NONE DETECT); UR OXYCODONE QUAL NONE DETECTED (NONE DETECT); UR PCP QUAL NONE DETECTED (NONE DETECT); UR TCA QUAL NONE DETECTED (NONE DETECT)
[2016-09-11 21:46] LABS: ALBUMIN 4.7 g/dL (3.5-5.0); CALCIUM 9.8 mg/dL (8.8-10.2); POTASSIUM 5.6 mmol/L (3.5-5.1); TOTAL BILIRUBIN 0.9 mg/dL (0.20-1.00); TOTAL PROTEIN 8.5 g/dL (6.3-8.3)
--- NOTE | 2016-09-11 22:19 | Diag Imaging Result Doc PS360 ---
EXAM: FLAT/UPRIGHT ABD/1 VIEW CHEST HISTORY: nausea and vomiting TECHNIQUE: Portable, four views COMPARISON: 01/18/2016 FINDINGS: The lungs are well expanded. No cardiomegaly. No pneumonia. No free air beneath the diaphragm. There is stool throughout the colon. The bowel loops are not dilated. No organomegaly. There are several pelvic phleboliths. IMPRESSION: Constipation Electronically signed by Terence Leblanc 09/11/2016 10:17 PM
[2016-09-11] MEDS ORDERED: ROCEPHIN 1 GM/NS 1 GM/50 ML IVPB IV ONE (22:25)
[2016-09-11] MEDS ORDERED: VANCOMYCIN 1 GM/NS 1 GM/250 ML IVPB IV ONE (22:26)
[2016-09-11] MEDS ORDERED: NS 1,000 ML IV ONE (22:48)
[2016-09-11] MEDS ORDERED: ZOFRAN IV PRN (22:48)
[2016-09-11] MEDS ORDERED: NS 1,000 ML ONE (22:51)
[2016-09-11] MEDS ORDERED: VANCOMYCIN IV PER PHARMACY MISC SCH (23:00)
[2016-09-11] MEDS ORDERED: HUMULIN R (PARKWAY) 100 UNITS in NS 100 ML IV SCH (23:00)
[2016-09-12] MEDS ORDERED: VANCOMYCIN 1 GM/NS 1 GM/250 ML IVPB IV ONE (01:00)
[2016-09-12] MEDS ORDERED: MAGNESIUM SULFATE 2 GM/S.W.I. 2 GM/50 ML IVPB IV PRN (02:01)
[2016-09-12] MEDS ORDERED: HUMULIN R 100 UNIT in NS 100 ML IV SCH (02:01)
[2016-09-12] MEDS ORDERED: SODIUM PHOSPHATE 30 MMOL in D5W 250 ML IV PRN (02:01)
[2016-09-12] MEDS ORDERED: D50W SYRINGE IV PRN (02:01)
[2016-09-12] MEDS ORDERED: D5 1/2 NS 1,000 ML IV PRN (02:03)
[2016-09-12 03:09] LABS: AGAP 24; BUN 25 mg/dL (8-22); CALCIUM 8.7 mg/dL (8.8-10.2); CHLORIDE 101 mmol/L (98-107); COSMO 290; MAGNESIUM 2.4 mg/dL (1.5-2.7); SODIUM 138 mmol/L (136-145); TCO2 13 mmol/L (25-35)
[2016-09-12] MEDS ORDERED: POTASSIUM CHLORIDE 20 MEQ/SWI 20 MEQ/100 ML IVPB IV PRN ×2 (03:27→03:29)
[2016-09-12] MEDS: NS 1,000 ML IV SCH ×4 (03:52→17:41)
[2016-09-12 05:58] LABS: AGAP 18; BUN 22 mg/dL (8-22); CALCIUM 8.5 mg/dL (8.8-10.2); CHLORIDE 103 mmol/L (98-107); COSMO 282; MAGNESIUM 2.2 mg/dL (1.5-2.7); POTASSIUM 4.8 mmol/L (3.5-5.1); SODIUM 137 mmol/L (136-145); TCO2 16 mmol/L (25-35)
[2016-09-12 09:29] LABS: AGAP 14; BUN 20 mg/dL (8-22); CALCIUM 8.8 mg/dL (8.8-10.2); CHLORIDE 103 mmol/L (98-107); COSMO 282; MAGNESIUM 2.2 mg/dL (1.5-2.7); POTASSIUM 4.8 mmol/L (3.5-5.1); SODIUM 137 mmol/L (136-145); TCO2 20 mmol/L (25-35)
[2016-09-12 09:52] LABS: BLOOD TYPE ARTERIAL; DRAW SITE L RADIAL; METHB 1.2 % (0.0-1.5); O2(CT) 19.1 mL/dL (15.0-23.0); PCO2(98.6) 42 mmHg (35-45); PO2(98.6) 82 mmHg (60-100); SAMPLE BLOOD; THB 14.3 g/dL (11.5-17.4); pH(98.6) 7.31 (7.35-7.45)
[2016-09-12 09:54] LABS: ALLEN TEST YES; MODALITY ROOM AIR
[2016-09-12 10:07] LABS: HEMOGLOBIN A1C 9.8 % (4.8-6.0)
[2016-09-12] MEDS: HUMULIN 70/30 (PARKWAY) SUBQ SCH (11:13)
[2016-09-12] MEDS: VANCOMYCIN 1,750 MG in NS 250 ML IV SCH (13:39)
[2016-09-12 13:46] LABS: HEMOGLOBIN 13.7 g/dL (14.0-18.0); MCH 31.9 PG (27-31); RBC 4.3 XMIL (4.7-6.1)
[2016-09-12 13:56] LABS: HEMATOCRIT 39.6 % (42.0-52.0); MCHC 34.6 g/dL (33-37); MCV 92.1 FL (81-99); MPV 8.7 FL (7.4-10.4)
[2016-09-12] MEDS ORDERED: VANCOMYCIN 1 GM/NS 1 GM/250 ML IVPB IV SCH (14:00)
[2016-09-12] MEDS ORDERED: VANCOMYCIN 1,750 MG in NS 250 ML IV SCH (14:00)
[2016-09-12 14:32] LABS: AGAP 8; BUN 16 mg/dL (8-22); CALCIUM 8.5 mg/dL (8.8-10.2); CHLORIDE 104 mmol/L (98-107); COSMO 273; SODIUM 135 mmol/L (136-145); TCO2 23 mmol/L (25-35)
--- NOTE | 2016-09-12 14:37 | HISTORY AND PHYSICAL ---
CHIEF COMPLAINT: "My blood sugar is high." HISTORY OF PRESENT ILLNESS: This is a 26-year-old patient with a history of insulin dependent diabetes, who is well known to our service having multiple admissions for the same over the last few months. He presented to the emergency room complaining of nausea and vomiting. The patient stated that he lost his insulin and has not had it in quite some time. He does not check his blood sugars, nor did he fill insulin after previous discharges. He did report also having a sore throat while in the emergency room. He was found have a white count of 20.5 with a sodium of 133, potassium 5.6, a BUN of 32, creatinine 1.6, with a bicarb of 6, and an anion gap of 42 on admission, which is consistent with diabetic ketoacidosis. He was admitted to ICU on diabetic ketoacidosis protocol for further evaluation and treatment. PAST MEDICAL HISTORY: 1. Diabetes mellitus type 1. 2. Anxiety. 3. Medical noncompliance. PAST SURGICAL HISTORY: Tonsillectomy. SOCIAL HISTORY: He smokes 3-4 packs of cigarettes a day. He denies alcohol or illicit drug use, although his drug screen was positive for methamphetamines. ALLERGIES: Amoxicillin and penicillins, which causes a rash. HOME MEDICATIONS: 1. Klonopin 1 mg p.o. b.i.d. 2. Humulin 70/30, 40 units b.i.d., which he does not take. REVIEW OF SYSTEMS: Unable to obtain, as the patient will not talk to staff. PHYSICAL EXAMINATION: GENERAL: This is a 26-year-old male who is lying in the bed in no distress. VITAL SIGNS: Blood pressure is 121/65, heart rate of 86, respirations 19, temperature is 98.4 degrees temporal, with room air saturation of 99-100. HEENT: Head is normocephalic, atraumatic. Pupils equal, round, react to light. Sclerae not anicteric. Mucous membranes are moist. NECK: Supple. Trachea midline. CARDIOVASCULAR: Regular rate and rhythm. S1 and S2 appreciated. PULMONARY: Breath sounds are clear. No increased work of breathing is noted. Chest does rise and fall symmetrically with respiration. GASTROINTESTINAL: Soft, nondistended, with bowel sounds in all 4 quadrants. NEUROLOGIC: Patient is drowsy. He is alert and oriented x3 when he chooses to speak with the staff. MUSCULOSKELETAL: Good range of motion of joints. EXTREMITIES: No clubbing, cyanosis, or edema. Pulses are palpable x4. SKIN: Warm and dry. LABS: WBC is 20.5, with a hemoglobin of 15.8, hematocrit 48.4, and platelets of 414,000. Admission BMP: Sodium is 133, potassium 5.6, CO2 6, anion gap 42, with a BUN of 32, creatinine 1.6, and a blood glucose of 915. This morning BMP: Sodium is 137, potassium 4.8, CO2 20, anion gap 14, with a BUN of 20, creatinine 1, and a blood glucose of 201. Urinalysis is essentially negative. Toxicology is positive for methamphetamines. ABGs on admission: PH was 7.05, with a pCO2 of 19, pO2 of 115, and a bicarb of 6.6, with a lactate of 3.4. This morning the pH is 7.31, with a pCO2 of 42, a pO2 of 82, bicarb of 21, with a lactate of 0.7. Abdominal x-ray reveals constipation. ASSESSMENT AND PLAN: 1. Diabetic ketoacidosis. 2. Leukocytosis, which is probably reactive. 3. Probable methamphetamine use. PLAN: The patient has been admitted to ICU. He was placed on diabetic ketoacidosis protocol. We will continue this. Course with IV hydration, Zofran for nausea. At present, we will continue vancomycin and Rocephin for antibiotic coverage. Further treatments pending hospital course. Dictated by BERT Sabillon for Jesus Aguilar MD cc: BERT Sabillon MD
[2016-09-12] MEDS: HUMALOG DOSE (PARKWAY) SUBQ SCH ×2 (16:57→20:24)
[2016-09-12] MEDS ORDERED: ROCEPHIN 1 GM/NS 1 GM/50 ML IVPB IV SCH (22:00)
[2016-09-13] MEDS: VANCOMYCIN 1,750 MG in NS 250 ML IV SCH (02:11)
[2016-09-13] MEDS: NS 1,000 ML IV SCH ×3 (06:17→14:05)
[2016-09-13] MEDS: HUMALOG DOSE (PARKWAY) SUBQ SCH ×2 (07:00→11:25)
[2016-09-13] MEDS: HUMULIN 70/30 (PARKWAY) SUBQ SCH (08:17)
[2016-09-13] MEDS ORDERED: HUMULIN 70/30 (PARKWAY) SUBQ SCH (09:00)
--- NOTE | 2016-09-13 10:10 | DISCHARGE SUMMARY ---
ADMISSION DATE: 09/11/2016 DISCHARGE DATE: 09/13/2016 DISCHARGE DIAGNOSES: 1. Diabetic ketoacidosis, resolved. 2. Leukocytosis, stable. 3. Methamphetamine use, continues to be problematic. 4. Chronic anxiety. 5. Chronic noncompliance. 6. Hypokalemia. 7. Others. CONSULTATIONS: None. PROCEDURES: None. BRIEF HOSPITAL COURSE: The patient is a 26-year-old male who was admitted as noted on the HPI. This is 1 of multiple admissions for Mr. Cotto secondary to his intentional and persistent noncompliance with his medical regimen. He is insistent that he only has to take 70/30 once a day. He also insists that he has been taking it at home, although this admission, very similar to his last admission, his blood sugars were much improved with giving him 70/30. Certainly would beg the question that he may not be very forthcoming and may not be taking this at home. Patient again noted that no one is going to tell him how to control his blood sugar. We did attempt to discuss with him that 70/30 typically does not last 24 hours and certainly should be given twice a day. The patient declined to change. DISPOSITION: The patient will be discharged home. Again, we wrote a prescription for his 70/30 twice a day as well as Klonopin. He states that he takes 2 mg twice a day. Discussed with him that I do not write doses that high. We wrote 1 mg once a day for 5 days to give him ample time to follow up with whomever has been writing this as an outpatient. Thirty-five minutes was spent in total care. cc: Leopoldo Pinto MD
[2016-09-13 11:17] VITALS: BP 143/80
[2016-09-13] MEDS ORDERED: VANCOMYCIN 1,750 MG in NS 250 ML IV SCH (14:00)
== END 2016-09-13 14:34 | disposition home or self-care (01) ==
LOC: P.ED 20:42 → SUATTDRO 23:12 → P.ICU 23:12 → P.MEDSURG 09-12 21:08
PROVIDERS: ATTEND Family Medicine